=== PATIENT | female | born 1975 | race Caucasian/White ===

== ENCOUNTER 2024-06-29 10:31 | Outpatient (CLI) | payer OTHER, SELFPAY ==
--- NOTE | ~2024-06-29 | US_ITS ---
Pelvic ultrasound. Clinical History: Excessive and frequent menstruation Technique: Realtime transabdominal and transvaginal scanning of the pelvis was performed. Color flow Doppler and Doppler spectral analysis were performed. Findings: The uterus is anteverted. The endometrial stripe has a thickness of 6 mm. No focal mass is identified. The right ovary measures 2.2 x 1.3 x 2.2 cm. No significant right ovarian or adnexal mass is seen. The left ovary measures 2.4 x 1.1 x 1.9 cm. No significant left ovarian or adnexal mass is seen. There is no evidence of free fluid in the cul de sac. Impression: No significant abnormality seen. Reviewed, dictated and finalized at location . [employer] PRESERVATION WORKER Impression: No significant abnormality seen.
== END 2024-06-29 10:32 | disposition home or self-care (01) ==
PROVIDERS: PCP Family Medicine; Visit Provider Obstetrics & Gynecology
DX: N92.1 Excessive and frequent menstruation with irregular cycle (principal)
CPT/HCPCS: 76830; 76856

== ENCOUNTER 2024-09-09 09:31 | Outpatient (CLI) | payer OTHER, SELFPAY ==
--- NOTE | ~2024-09-09 | CT_ITS ---
CT of the Abdomen and Pelvis: Indication: Abdominal pain Technique: 2.5 mm axial scans were obtained through the abdomen and pelvis following intravenous adm inistration of 100 cc of Omnipaque 350. Dose reduction technique was used on this scan by utilizing a utomated exposure control and iterative reconstruction technique. The dose-length product (DLP) was 5 05.50 mGy-cm. Findings: Scans through the lung bases are unremarkable. The liver, spleen, pancreas, adrenals and kidneys are within normal limits. Gallstone present. No shy dence of aortic aneurysm. No lymphadenopathy. No bowel obstruction or bowel wall thickening. There is no evidence to suggest acute appendicitis. Images through the pelvis were performed. Urinary bladder unremarkable. No pelvic mass seen. No ascit es. Impression: No significant abnormalities seen. Reviewed, dictated and finalized at [facility]. [employer] SUPERVISOR Impression: No significant abnormalities seen.
== END 2024-09-09 09:32 | disposition home or self-care (01) ==
PROVIDERS: Visit Provider Nurse Practitioner Family
DX: R10.10 Upper abdominal pain, unspecified (principal); K62.5 Hemorrhage of anus and rectum; R10.30 Lower abdominal pain, unspecified; R68.81 Early satiety
CPT/HCPCS: 74177; Q9967

== ENCOUNTER 2024-12-15 01:03 | Day surgery (SDC) | payer OTHER, SELFPAY ==
[2024-12-06 10:34] VITALS: BMI 27.4
[2024-12-15 06:43] VITALS: BP 128/84; PULSE 80; RESP 20; TEMP 36.1; O2SAT 100
[2024-12-15] MEDS: LACTATED RINGERS 1,000 ML 150 ML IV CONT (06:55)
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
[2024-12-15 08:08] LABS: BEDSIDEPREGUCG Negative (Negative)
[2024-12-15 08:09] VITALS: BP 111/74; PULSE 71; RESP 18; O2SAT 97
[2024-12-15 08:19] VITALS: BP 114/76; PULSE 69; RESP 20; O2SAT 99
[2024-12-15 08:29] VITALS: BP 126/87; PULSE 6; RESP 19; O2SAT 99
== END 2024-12-15 08:40 | disposition home or self-care (01) ==
PROVIDERS: PCP Family Medicine; Referring Provider Nurse Practitioner Family; Visit Provider Internal Medicine Gastroenterology
PROC: 0DJD8ZZ Inspection of Lower Intestinal Tract, Via Natural or Artificial Opening Endoscopic (ICD-10-PCS; CPT 45378; principal; 2024-12-15 08:00)
DX: Z12.11 Encounter for screening for malignant neoplasm of colon (principal); K64.8 Other hemorrhoids; E53.8 Deficiency of other specified B group vitamins; G44.229 Chronic tension-type headache, not intractable; R01.1 Cardiac murmur, unspecified; L40.9 Psoriasis, unspecified; Z98.890 Other specified postprocedural states; Z80.3 Family history of malignant neoplasm of breast; Z82.49 Family history of ischemic heart disease and other diseases of the circulatory system
CPT/HCPCS: 45378; J2003; J2704; J7120